=== PATIENT | female | born 1965 | race Caucasian/White ===

== ENCOUNTER 2019-07-25 07:19 | Emergency (ER) | payer OTHER ==
[~2019-07-25] VITALS: Ht 154.9 cm; Wt 75.3 kg
[2019-07-25] MEDS ORDERED: CRESTOR40 MG PO (07:43)
[2019-07-25] MEDS ORDERED: GLIPIZIDE XL10 MG PO (07:43)
[2019-07-25] MEDS ORDERED: VASOTEC20 M1 PO (07:43)
[2019-07-25] MEDS ORDERED: SYNTHROID88 MCG PO (07:43)
== END 2019-07-25 21:26 | disposition home or self-care (01) ==
LOC: ER 07:19
DX: E87.5 Hyperkalemia (principal); E11.9 Type 2 diabetes mellitus without complications